=== PATIENT | male | born 1985 | race Caucasian/White ===

== ENCOUNTER 2019-03-15 05:57 | Day surgery (SDC) | payer OTHER ==
[~2019-03-15] VITALS: Ht 182.9 cm; Wt 84.8 kg
[~2019-03-15 05:57] MED LIST: BUSPIRONE HCL15 MG PO; NORCO 5-325 TA1 EAC1 PO; VENTOLIN HFA 1818 GM INH; VOLTAREN GEL 1100 G2 TOP; XANAX1 MG PO; ZOHYDRO ER10 M1 PO
[2019-03-15 15:05] VITALS: BP 125/87
[2019-03-15] MEDS ORDERED: PERCOCET PO (15:42)
[2019-03-15 16:16] VITALS: BP 125/87
--- NOTE | 2019-03-16 10:46 | O ---
[facility] [place] [address] OPERATIVE REPORT Name: PRINCE STEVENSON Room #: DEP [facility]..#: [id number] Admission: 03/15/19 ������������������ Attend Phys: Arnoldo Alva MD Discharge: 03/15/19 ������������������ Date of : 85 Report #: [id number] THIS REPORT FOR: //name// CC: ANA physician/PCP Arnoldo Alva DATE OF SERVICE: 03/15/2019 PREOPERATIVE DIAGNOSIS: Right knee recurrent medial meniscus tear. POSTOPERATIVE DIAGNOSIS: Right knee recurrent medial meniscus tear. PROCEDURE: Right knee arthroscopy with partial medial meniscectomy. SURGEON: Arnoldo Alva MD. RESAW FEEDER: Leydi Mccullough PA-C. ANESTHESIA: LMA. TOURNIQUET TIME: 15 minutes. COMPLICATIONS: None. SPECIMENS: None. CONDITION UPON LEAVING THE OPERATING ROOM: Stable. INDICATIONS FOR PROCEDURE: The patient is a 33-year-old gentleman who has had medial-sided right knee pain. He has had previous knee arthroscopy with medial meniscectomy and a repeat MRI scan was performed showing to have recurrent horizontal tear of the posterior horn of the medial meniscus. After discussion with him, he elected for right knee arthroscopy with partial medial meniscectomy and debridement as needed. DESCRIPTION OF PROCEDURE: Risks, benefits, alternatives, complications were discussed in detail with the patient including but not limited to risk of anesthesia, risk of damage to nerves, arteries, blood vessels, risk for infection, bleeding, risk for continued knee pain, need for reoperation. Informed consent was obtained from the patient. Right knee was appropriately marked in the preoperative holding area. IV Ancef was given for preoperative antibiotics. He was brought to the operating room and placed in supine position on operating room table. LMA anesthesia was induced without complication. Tourniquet was placed on the right thigh. Right lower extremity was prepped and draped in normal sterile fashion. Timeout was performed properly identifying the patient and procedure as well as instrumentation. All in the operating room [address] [address] OPERATIVE REPORT Name: PRINCE STEVENSON Room #: DEP [facility] Rekha#: [id number] Admission: 03/15/19 ������������������ Attend Phys: Arnoldo Alva MD Discharge: 03/15/19 ������������������ Date of : 85 Report #: [id number] were in agreement. Right lower extremity was exsanguinated, tourniquet was inflated. Tourniquet time was 15 minutes. Standard anterolateral portal was established with an 11 blade through the skin. Arthroscope was introduced into the patellofemoral compartment, diagnostic arthroscopy was undertaken. Patellofemoral compartment was visualized and found to be without pathology. Medial gutter was visualized and found to be without pathology. Medial compartment was visualized and medial portal was established under arthroscopic visualization. Probe was introduced in the medial compartment. There was noted to be a horizontal tear of the undersurface of the posterior horn of medial meniscus. This was trimmed back with an arthroscopic biter and smoothed back with a shaver. Articular surfaces were intact. Notch was visualized and found to have an intact anterior cruciate ligament. Lateral compartment was visualized and found to have an intact lateral meniscus. Scope was placed back in the patellofemoral compartment and all fluid was allowed to drain from the knee. Knee was injected with 10 mL of 0.5% Marcaine. Incision was closed with 3-0 nylon. Soft dressing of Adaptic, 4 x 4, Webril, Benjamin wrap were applied. The patient tolerated this procedure well and went to recovery room under care of anesthesia postoperatively. ��������������������������������������������� <ELECTRONICALLY SIGNED> ���������������������������������������� By: Arnoldo Alva MD ��������������������������������������������� 03/16/19 1046 [id number] Arnoldo Alva MD /nt
== END 2019-03-15 16:45 | disposition home or self-care (01) ==
LOC: TBA 05:57 → OR 05:57 → TBA 05:58 → OR 10:56
DX: M23.221 Derangement of posterior horn of medial meniscus due to old tear or injury, right knee (principal); I10 Essential (primary) hypertension; J45.909 Unspecified asthma, uncomplicated; F41.9 Anxiety disorder, unspecified; Z90.49 Acquired absence of other specified parts of digestive tract; Z98.890 Other specified postprocedural states; Z79.899 Other long term (current) drug therapy; Z88.2 Allergy status to sulfonamides; Z88.8 Allergy status to other drugs, medicaments and biological substances
CPT/HCPCS: 50010; 50101; 50405; 51038; 54170; 56526; 57103; 57180; 62110; 62900; 70005